=== PATIENT | male | born 1965 | race Caucasian/White ===

== ENCOUNTER 2017-06-17 16:30 | Emergency (ER) | payer MEDICARE, OTHER ==
[2017-06-17] MEDS ORDERED: ABILIFY PO (16:33)
[2017-06-17] MEDS ORDERED: NEURONTIN PO (16:33)
[2017-06-17] MEDS ORDERED: PRISTIQ PO (16:33)
[2017-06-17] MEDS ORDERED: NAPROXEN PO (16:33)
[2017-06-17] MEDS ORDERED: [UNRECOGNIZED DRUG - OTHER] (16:34)
== END 2017-06-17 17:19 | disposition home or self-care (01) ==
LOC: SED 16:30
DX: H66.92 Otitis media, unspecified, left ear (principal); J45.909 Unspecified asthma, uncomplicated; F32.9 Major depressive disorder, single episode, unspecified; Z79.899 Other long term (current) drug therapy; Z88.5 Allergy status to narcotic agent
CPT/HCPCS: 99282